=== PATIENT | female | born 1985 | race Two or more races ===

== ENCOUNTER 2019-06-06 17:47 | Emergency (ER) | payer OTHER ==
[~2019-06-06] VITALS: Ht 160 cm; Wt 90.7 kg
[2019-06-06 17:58] VITALS: BP 132/68
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
== END 2019-06-06 18:59 | disposition home or self-care (01) ==
LOC: ER 17:53
DX: S16.1XXA Strain of muscle, fascia and tendon at neck level, initial encounter (principal); V49.59XA Passenger injured in collision with other motor vehicles in traffic accident, initial encounter; Y93.89 Activity, other specified; Y92.413 State road as the place of occurrence of the external cause; Y99.8 Other external cause status

== ENCOUNTER 2019-06-13 21:04 | Emergency (ER) | payer OTHER ==
[~2019-06-13] VITALS: Ht 162.6 cm; Wt 87.5 kg
[2019-06-13 21:30] VITALS: BP 137/98
== END 2019-06-13 21:45 | disposition home or self-care (01) ==
LOC: ER 21:05
DX: B35.3 Tinea pedis (principal); B35.1 Tinea unguium